=== PATIENT | female | born 1990 | race Caucasian/White ===

== ENCOUNTER → 2023-01-12 12:02 | Outpatient (CLI) | payer SELFPAY | PROVIDERS: Referring Provider Family Medicine; Visit Provider Family Medicine | DX: Z23 Encounter for immunization (principal) | CPT/HCPCS: 90471; 90686 ==

== ENCOUNTER → 2023-10-26 09:16 | Outpatient (CLI) | payer OTHER, SELFPAY ==
--- NOTE | 2023-10-26 09:17 | DI.RAD.S_ITS ---
PROCEDURE: XR ELBOW LT MIN 3V INDICATIONS: fall event yesterday onto left elbow TECHNIQUE: 4 views of the elbow were acquired. COMPARISON: None. FINDINGS: Bones: Minimally displaced fracture involving radial head is seen extending to its articulation with capitellum. No suspicious bony lesions. Soft tissues: Moderate to large joint effusion is seen with displaced fat pad. No suspicious soft tissue calcifications. IMPRESSION: Minimally displaced fracture involving radial head with moderate to large joint effusion. Dictated by: Corey Harris M.D. on 10/26/2023 at 10:12 Approved by: Corey Harris M.D. on 10/26/2023 at 10:30
== END ==
PROVIDERS: Referring Provider Family Medicine; Visit Provider Family Medicine
DX: S52.125A Nondisplaced fracture of head of left radius, initial encounter for closed fracture (principal); M25.522 Pain in left elbow; W19.XXXA Unspecified fall, initial encounter
CPT/HCPCS: 73080

== ENCOUNTER → 2023-11-09 15:51 | Outpatient (CLI) | payer OTHER, SELFPAY ==
--- NOTE | 2023-11-09 15:52 | DI.RAD.S_ITS ---
PROCEDURE: XR ELBOW LT MIN 3V INDICATIONS: recheck fracture site TECHNIQUE: 4 views of the elbow were acquired. COMPARISON: [facility], CR, XR ELBOW LT MIN 3V, 10/26/2023, 9:23. FINDINGS: Bones: Similar minimally-displaced fracture of the radial head that extends to the articular surface. No new fracture. No suspicious bony lesions. Soft tissues: Interval decrease in the degree of joint effusions. No suspicious soft tissue calcifications. IMPRESSION: 1. Similar minimally displaced fracture of the radial head that extends to the articular surface. No new fracture. 2. Interval decrease in the degree of joint effusions. Dictated by: Chaz Aguero M.D. on 11/10/2023 at 12:33 Approved by: Chaz Aguero M.D. on 11/10/2023 at 12:39
== END ==
PROVIDERS: Referring Provider Family Medicine; Visit Provider Family Medicine
DX: S52.125A Nondisplaced fracture of head of left radius, initial encounter for closed fracture (principal); X58.XXXA Exposure to other specified factors, initial encounter
CPT/HCPCS: 73080

== ENCOUNTER → 2024-01-06 17:33 | Outpatient (CLI) | payer OTHER, SELFPAY | PROVIDERS: Referring Provider Internal Medicine; Visit Provider Internal Medicine | DX: Z23 Encounter for immunization (principal) | CPT/HCPCS: 90471; 90656 ==

== ENCOUNTER → 2024-02-08 09:32 | Outpatient (CLI) | payer OTHER, SELFPAY | PROVIDERS: PCP Family Medicine; Visit Provider Family Medicine | DX: N64.52 Nipple discharge (principal) | CPT/HCPCS: 87070; 87075; 87205 ==

== ENCOUNTER → 2024-02-08 15:44 | Outpatient (CLI) | payer OTHER, SELFPAY ==
[2024-02-08 16:21] LABS: Add Manual Diff / Slide Review NO; Basophils Absolute Auto 0 /uL (0-100); Basophils Percent Auto 0.4 % (0-2); Eosinophils Absolute Auto 100 /uL (0-450); Eosinophils Percent Auto 1.2 % (2-4); Hematocrit 38.6 % (36-46); Lymphocytes Absolute Auto 2800 /uL (1100-4500); Lymphocytes Percent Auto 36.3 % (25-40); Mean Corpuscular HGB Conc 33.7 % (30-36); Mean Corpuscular Hemoglobin 30.3 PG (26-34); Mean Corpuscular Volume 89.8 fL (80-100); Monocytes Absolute Auto 400 /uL (0-900); Monocytes Percent Auto 4.9 % (3-14); Neutrophils Absolute Auto 4500 /uL (1500-7000); Neutrophils Percent Auto 57.2 % (50-75); Platelet Count 335 X10^3/uL (150-400); Red Cell Distribution Width 12.9 % (11.6-14.8); White Blood Cell Count 7.8 X10^3/uL (4.5-11.0)
[2024-02-08 16:52] LABS: High Sensitivity CRP - Cardiac < 0.3 mg/L (1.0-3.0)
[2024-02-08 17:03] LABS: Prolactin 19.7 ng/mL (3.0-18.6)
== END ==
PROVIDERS: PCP Family Medicine; Referring Provider Family Medicine; Visit Provider Family Medicine
DX: N64.52 Nipple discharge (principal)
CPT/HCPCS: 36415; 84146; 85025; 86140; 87070; 87075; 87205

== ENCOUNTER → 2024-02-18 11:52 | Outpatient (CLI) | payer OTHER, SELFPAY ==
--- NOTE | 2024-02-18 11:53 | DI.US.S_ITS ---
LIMITED ULTRASOUND OF LEFT BREAST: 02/18/2024 CLINICAL: Nipple discharge, left breast, non-spontaneous and not bloody. No prior exams were available for comparison. Color flow and real-time ultrasound of the left breast retroareolar were performed. Petty scale images of the real-time examination were reviewed. No sonographic abnormality is seen in the area of clinical concern in the retroareolar region. IMPRESSION: INCOMPLETE: NEED ADDITIONAL IMAGING EVALUATION No sonographic abnormality in the area of clinical concern. No sonographic evidence of malignancy. Recommend diagnostic mammogram for further evaluation, which will be scheduled on a different day. Findings and recommendations were conveyed to the patient during today's evaluation. This exam was interpreted at Station ID: [id number]. Electronically Signed By: Jennifer Horn M.D., Ph.D. eb/:02/18/2024 13:08:03 letter sent: Additional Imaging Needed ACR BI-RADS Category 0: Incomplete: Need Additional Imaging Evaluation
--- NOTE | 2024-02-18 11:53 | DI.US.S_ITS ---
LIMITED ULTRASOUND OF RIGHT BREAST: 02/18/2024 CLINICAL: Nipple discharge, right breast, non spontaneous and not bloody. No prior exams were available for comparison. Color flow and real-time ultrasound of the right breast retroareolar were performed. Petty scale images of the real-time examination were reviewed. No sonographic abnormality is seen in the area of clinical concern in the retroareolar region. IMPRESSION: INCOMPLETE: NEED ADDITIONAL IMAGING EVALUATION No sonographic abnormality in the area of clinical concern. No sonographic evidence of malignancy. Recommend diagnostic mammogram for further evaluation, which will be scheduled on a different day. Findings and recommendations were conveyed to the patient during today's evaluation. This exam was interpreted at Station ID: [id number]. Electronically Signed By: Jennifer Horn M.D., Ph.D. eb/:02/18/2024 13:07:07 letter sent: Additional Imaging Needed ACR BI-RADS Category 0: Incomplete: Need Additional Imaging Evaluation
== END ==
PROVIDERS: PCP Family Medicine; Referring Provider Family Medicine; Visit Provider Family Medicine
DX: N64.52 Nipple discharge (principal)
CPT/HCPCS: 76642

== ENCOUNTER → 2024-03-08 11:59 | Outpatient (CLI) | payer OTHER, SELFPAY ==
--- NOTE | 2024-03-08 11:59 | DI.MG.S_ITS ---
BILATERAL DIGITAL DIAGNOSTIC MAMMOGRAM 3D/2D: 03/08/2024 CLINICAL: Baseline. Breast discharge. Comparison is made to exams dated: 02/18/2024 ultrasound and 02/18/2024 ultrasound - [facility]. The breasts are heterogeneously dense, which may obscure small masses (category c / 51-75% glandular tissue). No significant masses, calcifications, or other findings are seen in either breast. IMPRESSION: NEGATIVE There is no abnormality seen in either breast to correspond with the non-bloody discharge from the nipple. There is no abnormality seen in the left breast to correspond with the pain. Recommend clinical followup. There is no mammographic evidence of malignancy. Recommend annual screening mammograms beginning at age 40. Based on the Tyrer Cuzick model (a risk assessment model) the patient's lifetime risk is 15.4% and her 10 year risk is 0.9%. According to the ACR, ACS, and NCCN guidelines, an annual breast MRI exam along with mammogram is recommended if the patient's lifetime risk is 20% or greater. This exam was interpreted at Station ID: [id number]. NOTE: For mammograms, a report in lay terms will be sent to the patient. Approximately 15% of breast malignancies will not be visualized mammographically. In the management of a palpable breast mass, a negative mammogram must not discourage biopsy of a clinically suspicious lesion. Electronically Signed By: Abundio Gonzalez M.D. ar/:03/08/2024 12:46:46 letter sent: Clinical Evaluation ACR BI-RADS Category 1: Negative
== END ==
LOC: MAMMO 11:59
PROVIDERS: PCP Family Medicine; Referring Provider Family Medicine; Visit Provider Family Medicine
DX: R92.8 Other abnormal and inconclusive findings on diagnostic imaging of breast (principal)
CPT/HCPCS: 77066; G0279

== ENCOUNTER → 2024-05-30 15:59 | Outpatient (CLI) | payer OTHER, SELFPAY ==
[2024-05-30 17:00] LABS: Prolactin 20.1 ng/mL (3.0-18.6)
[2024-05-30 17:16] LABS: TSH w/ Reflex to FT4 2.82 uIU/mL (0.47-4.68)
== END ==
PROVIDERS: PCP Family Medicine; Referring Provider Family Medicine; Visit Provider Family Medicine
DX: N64.52 Nipple discharge (principal)
CPT/HCPCS: 36415; 84146; 84443

== ENCOUNTER → 2025-03-08 07:41 | Outpatient (CLI) | payer OTHER, SELFPAY | PROVIDERS: Obstetrics & Gynecology; PCP Family Medicine; Referring Provider Nurse Practitioner Family; Visit Provider Nurse Practitioner Family | DX: Z11.1 Encounter for screening for respiratory tuberculosis (principal); N64.52 Nipple discharge | CPT/HCPCS: 84146; 86480 ==

== ENCOUNTER → 2025-03-15 16:06 | Outpatient (CLI) | payer OTHER, SELFPAY | PROVIDERS: PCP Family Medicine; Referring Provider Nurse Practitioner Family; Visit Provider Nurse Practitioner Family | DX: Z11.1 Encounter for screening for respiratory tuberculosis (principal) | CPT/HCPCS: 36415; 86480 ==